=== PATIENT | female | born 1965 | race Caucasian/White ===

== ENCOUNTER → 2016-08-24 | Outpatient (CLI) | payer BC ==
--- NOTE | 2016-08-27 07:06 | MM ---
Reason for exam: screening (asymptomatic). Last mammogram was performed 1 year and 1 month ago. History: Family history of breast cancer in mother at age 50, breast cancer in maternal aunt at age 60, and breast cancer in paternal aunt. Retro-pectoral implants in both breasts, 2014. Implant Removal of both breasts, 2007. Retro-pectoral saline implants in both breasts, December 2000. Retro-pectoral saline implants in both breasts, 2000. Took hormonal contraceptives for 7 years beginning at age 20. Physical Findings: A clinical breast exam by your physician is recommended on an annual basis and results should be correlated with mammographic findings. MG Screening Mammo Implant/CAD Bilateral CC, MLO, and ID view(s) were taken. Prior study comparison: July 26, 2015, bilateral MG screening mammo implant/CAD. March 05, 2014, bilateral MG diagnostic mammo w CAD GILES. The breast tissue is extremely dense which could obscure a lesion on mammography. Bilateral implants intact. No significant changes when compared with prior studies. ASSESSMENT: Negative, BI-RAD 1 RECOMMENDATION: Follow-up diagnostic mammogram of both breasts in 1 year.
== END | disposition home or self-care (01) ==
LOC: RADMAMWWP 07:02
PROVIDERS: ATTEND Obstetrics & Gynecology
DX: Z12.31 Encounter for screening mammogram for malignant neoplasm of breast (principal); Z80.3 Family history of malignant neoplasm of breast; Z98.82 Breast implant status

== ENCOUNTER → 2017-05-21 | Outpatient (CLI) | payer BC ==
--- NOTE | 2017-05-21 16:32 | CT ---
EXAMINATION TYPE: CT angio chest DATE OF EXAM: 05/21/2017 4:12 PM COMPARISON: NONE HISTORY: Family history of heart disease and aortic aneurysm. No complaints at time of scan CT DLP: 297.3 mGycm Automated exposure control for dose reduction was used. CONTRAST: CTA scan of the thorax is performed without and with IV Contrast, patient injected with 100 mL of Omn ipaque 350, pulmonary embolism protocol. . FINDINGS: LUNGS: Pleural-based nodules are seen involving the upper lobes measuring less than 3 mm. No pneumoth orax. No consolidation. No focal pneumonia. 3 mm subpleural nodule left lower lobe. MEDIASTINUM: There is satisfactory enhancement of the pulmonary artery and its branches, there is no CT evidence for pulmonary embolism. There are no greater than 1 cm hilar or mediastinal lymph nodes. No pericardial effusion is seen. Aorta appears to be of normal course and caliber with no evidence of aneurysmal dilation. Aortic root measures 2.6 cm. Descending aorta measures 2.7 cm. Aortic arch m easures maximal dimension of 2.4 cm. Descending aorta measures a maximal dimension of 2.2 cm. OTHER: Mild adrenal gland thickening noted bilaterally. Bilateral breast prostheses are noted. IMPRESSION: 1. No evidence of aortic aneurysm. No acute process. 2. There are multiple subpleural nodules the largest within the left lower lobe measuring 3 mm. Short -term follow-up CT of the chest could be obtained on a 6-12 month basis to confirm stability.
== END | disposition home or self-care (01) ==
LOC: RADCTMAIN 15:38
PROVIDERS: ATTEND Family Medicine
DX: I25.9 Chronic ischemic heart disease, unspecified (principal); Z82.49 Family history of ischemic heart disease and other diseases of the circulatory system; R91.8 Other nonspecific abnormal finding of lung field
CPT/HCPCS: 71275; Q9967

== ENCOUNTER → 2017-09-20 | Outpatient (CLI) | payer BC ==
--- NOTE | 2017-09-20 09:23 | MM ---
Reason for exam: clinical finding. Last mammogram was performed 1 year and 1 month ago. History: Family history of breast cancer in mother at age 50, breast cancer in maternal aunt at age 60, and breast cancer in paternal aunt. Retro-pectoral implants in both breasts, 2014. Implant Removal of both breasts, 2007. Retro-pectoral saline implants in both breasts, December 2000. Retro-pectoral saline implants in both breasts, 2000. Took hormonal contraceptives for 7 years beginning at age 20. Physical Findings: Nurse Summary: 0.25cm nodule in the right breast at 10 o'clock (nurse dw). MG Diag Mamm Implants GILES w CAD Bilateral CC, MLO, and ID view(s) were taken. Prior study comparison: August 24, 2016, bilateral MG screening mammo implant/CAD. July 26, 2015, bilateral MG screening mammo implant/CAD. March 05, 2014, bilateral MG diagnostic mammo w CAD GILES. April 17, 2013, bilateral digital screening mammo w/CAD. The breast tissue is heterogeneously dense. This may lower the sensitivity of mammography. Bilateral retropectoral saline implants. Palpable marker on the right breast. Nodular asymmetry lateral right breast on the CC view appears to have been present in 2013. These results were verbally communicated with the patient and result sheet given to the patient on 09/20/17. ASSESSMENT: Incomplete: need additional imaging evaluation, BI-RAD 0 RECOMMENDATION: Ultrasound of the right breast.
--- NOTE | 2017-09-20 10:00 | USB ---
Reason for exam: follow-up at short interval from prior study. History: Family history of breast cancer in mother at age 50, breast cancer in maternal aunt at age 60, and breast cancer in paternal aunt. Retro-pectoral implants in both breasts, 2014. Implant Removal of both breasts, 2007. Retro-pectoral saline implants in both breasts, December 2000. Retro-pectoral saline implants in both breasts, 2000. Took hormonal contraceptives for 7 years beginning at age 20. US Breast RT Right breast ultrasound includes all four quadrants, the retroareolar region and axilla. Finding demonstrates a 0.5 x 0.3 x 0.4cm oval, cystic lesion at 10 o'clock BB with minimal internal debris, a 0.4 x 0.2 x 0.2cm oval lesion too small to characterize at 11 o'clock unchanged, benign, now smaller versus 7 x 4 x 5mm previously and a 0.3 x 0.2 x 0.5cm oval lesion too small to characterize at 11 o'clock versus 4 x 2 x 5mm previously, benign. These results were verbally communicated with the patient and result sheet given to the patient on 09/20/17. ASSESSMENT: Benign, BI-RAD 2 RECOMMENDATION: Routine screening mammogram of both breasts in 1 year. Manage on a clinical basis with regard to palpable 10 o'clock right breast cyst and breast pain.
== END | disposition home or self-care (01) ==
LOC: RADMAMWWP 07:30
PROVIDERS: ATTEND Surgery
DX: N63.11 Unspecified lump in the right breast, upper outer quadrant (principal); N64.4 Mastodynia; R92.8 Other abnormal and inconclusive findings on diagnostic imaging of breast
CPT/HCPCS: 77066

== ENCOUNTER → 2017-09-24 | Outpatient (CLI) | payer BC ==
--- NOTE | 2017-09-24 16:19 | BMR ---
EXAMINATION TYPE: MR breast BILAT wo/w con DATE OF EXAM: 09/24/2017 COMPARISON: Exams dating back to 04/17/2013 HISTORY: Abnormal mammo / Breast pain TECHNIQUE: A series of fat and water weighted images in the long and short axis views of both breasts are obtained in conjunction with dynamic contrast MRI with subtraction technique. The patient was i njected with 5 mL intravenous Gadavist gadolinium contrast. Three-dimensional and additional postpr ocessing imaging is created on independent workstation and reviewed during official interpretation of this study. FINDINGS: There is mild symmetric background parenchymal enhancement in breasts are composed of heter ogenous fibroglandular tissue. Bilateral retropectoral saline implants are intact without evidence of intracapsular or extracapsular rupture. The right breast 0.5 cm cystic mass at the 10 o'clock position as well as the 0.4 centimeter oval mas s at 11 o'clock seen on the prior right breast ultrasound dated 09/20/2017 are not clearly delineated on MR although the mass at 11:00 with smaller than on the previous exam and should be considered rogelio gn. 5 mm mass at the 11:00 position is seen and is T2 hyperintense without enhancement representing a simple cyst. No suspicious mass or nonmass enhancement are seen within either breast. No internal ma mmary, axillary, or intramammary adenopathy is seen bilaterally. IMPRESSION: BI-RADS 2-Benign findings. No MR evidence of malignancy. Annual screening mammography is recommended.
== END | disposition home or self-care (01) ==
LOC: RADMRIMAIN 06:09
PROVIDERS: ATTEND Surgery
DX: N64.4 Mastodynia (principal); N63.0 Unspecified lump in unspecified breast; R92.8 Other abnormal and inconclusive findings on diagnostic imaging of breast; Z98.82 Breast implant status
CPT/HCPCS: 77059; 0159T; A9581

== ENCOUNTER → 2018-08-12 | Outpatient (CLI) | payer BC ==
--- NOTE | 2018-08-12 09:35 | CT ---
EXAMINATION TYPE: CT chest wo con DATE OF EXAM: 08/12/2018 COMPARISON: 05/21/2017 HISTORY: follow up known lung nodule. CT DLP: 99.2 mGycm, Automated exposure control for dose reduction was used. CONTRAST: Performed injected with 0 mL of Isovue 300. TECHNIQUE: Axial images were obtained at 5 mm thick sections. Reconstructed images are reviewed on [employer] computer in the coronal plane. FINDINGS: Portion of the thyroid visualized is normal. There is a 0.3 cm bilateral lung base. Series 4 image 51. Couple of additional punctate subpleural. N o enlarged. No enlarged mediastinal or hilar adenopathy is evident. The ascending aorta diameter at the level o f the main pulmonary artery is 3.1 cm. The main pulmonary artery diameter at the bifurcation is 2.[address] sections are obtained through the upper abdomen. Abdomen is essentially unremarkable. Bilateral breast prostheses are evident. IMPRESSIONS: 1. Stable subpleural nodules largest lower lobe measures 0.3 cm. These should be confirmed as stable over the course of 2 years. Follow-up exam in 6-12 months is recommended.
== END | disposition home or self-care (01) ==
LOC: RADCTMAIN 06:57
PROVIDERS: ATTEND Family Medicine
DX: R91.8 Other nonspecific abnormal finding of lung field (principal)
CPT/HCPCS: 71250

== ENCOUNTER → 2018-11-11 | Outpatient (CLI) | payer BC ==
--- NOTE | 2018-11-11 09:54 | CT ---
EXAMINATION TYPE: CT abdomen pelvis wo con DATE OF EXAM: 11/11/2018 COMPARISON: None HISTORY: Right flank pain CT DLP: 468 mGycm Examination of the solid and hollow viscera is limited given the lack of contrast. FINDINGS: LUNG BASES: No evidence for nodule. No evidence for infiltrate. LIVER/GB: The gallbladder is unremarkable. No space-occupying hepatic lesion. PANCREAS: No pancreatic mass identified. No inflammatory process seen. SPLEEN: No evidence for splenomegaly. No intrasplenic lesions seen. ADRENALS: No adrenal nodules identified. No evidence for thickening. KIDNEYS: No evidence for renal mass. No nephrolithiasis. No hydronephrosis. BOWEL: Appendix has a normal appearance. No evidence of bowel obstruction. No inflammatory process. M ild fecal stasis noted. Lymph nodes: No evidence for adenopathy greater than 1 cm. Abdominal aorta: Atheromatous changes seen. No evidence for aneurysm. Genital organs: No significant abnormality. Other: No significant abnormality. IMPRESSION: Mild fecal stasis. Otherwise unremarkable study.
== END ==
LOC: RADCTMAIN 08:20
PROVIDERS: ATTEND Physical Medicine & Rehabilitation
DX: R19.5 Other fecal abnormalities (principal)
CPT/HCPCS: 74176

== ENCOUNTER → 2018-11-21 | Outpatient (CLI) | payer BC ==
--- NOTE | 2018-11-21 15:56 | MR ---
EXAMINATION TYPE: MR lumbar spine wo con DATE OF EXAM: 11/21/2018 COMPARISON: 11/11/2017 CT abdomen and pelvis HISTORY: Low back pain / Abdominal pain TECHNIQUE: Multiplanar, multisequence images of the lumbar spine were acquired. FINDINGS: Multilevel disc desiccation is seen of the lumbar spine. Conus medullaris is unremarkable i n signal and morphology terminating at L2. Vertebral body heights and alignment of the lumbar spine a re maintained. L1-L2: Normal disc appearance without desiccation. No herniation, protrusion or disc bulging. No ca nal stenosis is present. Foramina are patent bilaterally. L2-L3: Slight disc desiccation and a broad-based disc bulge are seen without spinal canal stenosis no r neural foraminal narrowing. L3-L4: Broad-based disc bulge, ligamentum flavum buckling and facet arthropathy are seen however ther e is no significant neural foraminal narrowing. No spinal canal stenosis. L4-L5: Very minimal bilateral neural foraminal narrowing is seen as a result of a broad-based disc bu lge and facet arthropathy. No spinal canal stenosis. L5-S1: Left paracentral disc herniation is seen with slight mass effect upon the forming left S1 nerv e root. Neural foramen appear patent. No spinal canal stenosis by measurement criteria. Incidentally noted left sacral Tarlov/neurogenic cyst on the sagittal image only. IMPRESSION: 1. 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 2. Mild multilevel degenerative disc disease of the lumbar spine with only very minimal bilateral danielle ral foraminal narrowing at L4-L5.
== END ==
LOC: RADMRIMAIN 06:11
PROVIDERS: ATTEND Physical Medicine & Rehabilitation
DX: M48.061 Spinal stenosis, lumbar region without neurogenic claudication (principal); M51.27 Other intervertebral disc displacement, lumbosacral region; M51.36 Other intervertebral disc degeneration, lumbar region
CPT/HCPCS: 72148

== ENCOUNTER → 2019-07-30 | Outpatient (CLI) | payer BC ==
--- NOTE | 2019-07-31 10:41 | MM ---
Reason for exam: screening (asymptomatic). Last mammogram was performed 1 year and 10 months ago. History: Family history of breast cancer in mother at age 50, breast cancer in maternal aunt at age 60, and breast cancer in paternal aunt. Retro-pectoral implants in both breasts, 2014. Implant Removal of both breasts, 2007. Retro-pectoral saline implants in both breasts, December 2000. Retro-pectoral saline implants in both breasts, 2000. Took hormonal contraceptives for 7 years beginning at age 20. Physical Findings: A clinical breast exam by your physician is recommended on an annual basis and results should be correlated with mammographic findings. MG Screening Mammo Implant/CAD Bilateral CC, MLO, and ID view(s) were taken. Prior study comparison: September 20, 2017, bilateral MG diag mamm implants GILES w CAD. August 24, 2016, bilateral MG screening mammo implant/CAD. July 26, 2015, bilateral MG screening mammo implant/CAD. The breast tissue is heterogeneously dense. This may lower the sensitivity of mammography. Bilateral retropectoral silicone implants. Stable lateral asymmetric density left CC view. No significant changes when compared with prior studies. ASSESSMENT: Negative, BI-RAD 1 RECOMMENDATION: Routine screening mammogram of both breasts in 1 year. Patient should continue monthly self breast exams. A negative report should not preclude additional follow up of suspicious palpable abnormalities.
== END | disposition home or self-care (01) ==
LOC: RADMAMWWP 07:03
PROVIDERS: ATTEND Obstetrics & Gynecology
DX: Z12.31 Encounter for screening mammogram for malignant neoplasm of breast (principal); Z80.3 Family history of malignant neoplasm of breast; Z98.82 Breast implant status
CPT/HCPCS: 77067

== ENCOUNTER → 2020-06-16 | Outpatient (CLI) | payer BC ==
--- NOTE | 2020-06-16 13:35 | US ---
EXAMINATION TYPE: US pelvis complete transvag DATE OF EXAM: 06/16/2020 COMPARISON: CT 11/11/2018, US 04/17/2013 CLINICAL HISTORY: R10.31 Right lower quadrant pain. TECHNIQUE: . Transabdominal sonographic images of the pelvis were acquired. Transvaginal sonographi c images were medically necessary to better assess the following anatomy: Uterus and endometrium Date of LMP: 06/05/2020 EXAM MEASUREMENTS: Uterus: 93 x 4.6 x 4.7 cm Endometrial Stripe: 0.9 cm Right Ovary: 3.0 x 2.1 x 2.4 cm Left Ovary: 2.3 x 2.2 x 1.4 cm 1. Uterus: Anteverted Heterogeneous myometrium. tiny amount of fluid visualized within the cervix 2. Endometrium: Two cystic areas visualized. It is difficult to differentiate if these areas are wit hin the endometrium or directly adjacent to the endometrium in the myometrium. The largest cystic are a measures 0.6 cm 3. Right Ovary: Cyst visualized measuring 2.0 x 1.3 x 1.5 cm 4. Left Ovary: wnl 5. Bilateral Adnexa: wnl 6. Posterior cul-de-sac: wnl IMPRESSION: Right ovarian cyst. Indeterminate cystic areas is seen at the level of the fundal aspect of the endometrium or myometrium, possible myometrial cysts, consider adenomyosis
== END | disposition home or self-care (01) ==
LOC: RADUSWWP 12:15
PROVIDERS: ATTEND Family Medicine
DX: N83.201 Unspecified ovarian cyst, right side (principal)
CPT/HCPCS: 76830; 76856

== ENCOUNTER → 2021-10-02 | Outpatient (CLI) | payer BC ==
--- NOTE | 2021-10-03 11:21 | MM ---
Reason for exam: screening (asymptomatic). Last mammogram was performed 2 years and 2 months ago. History: Family history of breast cancer in mother at age 50, breast cancer in maternal aunt at age 60, and breast cancer in paternal aunt. Retro-pectoral silicone gel implants in both breasts, 2014. Implant Removal of both breasts, 2007. Retro-pectoral saline implants in both breasts, December 2000. Retro-pectoral saline implants in both breasts, 2000. Took hormonal contraceptives for 7 years beginning at age 20. Physical Findings: A clinical breast exam by your physician is recommended on an annual basis and results should be correlated with mammographic findings. MG Screening Mammo Implant/CAD Bilateral CC and MLO view(s) were taken. Prior study comparison: July 30, 2019, bilateral MG screening mammo implant/CAD. September 20, 2017, bilateral MG diag mamm implants GILES w CAD. The breast tissue is extremely dense which could obscure a lesion on mammography. Finding: There is a 5 mm circumscribed round mass located 5 cm from the nipple in the upper quadrant, middle position of the right breast and a 7 mm oval density in the left breast middle posterior depth. New finding since July 30, 2019 and September 20, 2017. ASSESSMENT: Incomplete: need additional imaging evaluation, BI-RAD 0 RECOMMENDATION: Special view mammogram and ultrasound of both breasts. [facility] will attempt to contact patient to return for supplemental views and ultrasound.
== END | disposition home or self-care (01) ==
LOC: RADMAMWWP 13:29
PROVIDERS: ATTEND Obstetrics & Gynecology
DX: Z12.31 Encounter for screening mammogram for malignant neoplasm of breast (principal); Z80.3 Family history of malignant neoplasm of breast
CPT/HCPCS: 77067

== ENCOUNTER → 2021-10-05 | Outpatient (CLI) | payer BC ==
--- NOTE | 2021-10-05 12:10 | MM ---
Reason for exam: additional evaluation requested from abnormal screening. Last mammogram was performed less than 1 month ago. History: Family history of breast cancer in mother at age 50, breast cancer in maternal aunt at age 60, and breast cancer in paternal aunt. Retro-pectoral silicone gel implants in both breasts, 2014. Implant Removal of both breasts, 2007. Retro-pectoral saline implants in both breasts, December 2000. Retro-pectoral saline implants in both breasts, 2000. Took hormonal contraceptives for 7 years beginning at age 20. Physical Findings: A clinical breast exam by your physician is recommended on an annual basis and results should be correlated with mammographic findings. MG 3D Work Up W/Cad W/Imp GILES Bilateral CC and MLO view(s) were taken. Prior study comparison: October 02, 2021, bilateral MG screening mammo implant/CAD. July 30, 2019, bilateral MG screening mammo implant/CAD. The breast tissue is extremely dense which could obscure a lesion on mammography. Focal asymmetry with nodularity persisting. These results were verbally communicated with the patient and result sheet given to the patient on 10/05/21. ASSESSMENT: Incomplete: need additional imaging evaluation, BI-RAD 0 RECOMMENDATION: Ultrasound of both breasts.
--- NOTE | 2021-10-05 12:13 | USB ---
Reason for exam: additional evaluation requested from abnormal screening. History: Family history of breast cancer in mother at age 50, breast cancer in maternal aunt at age 60, and breast cancer in paternal aunt. Retro-pectoral silicone gel implants in both breasts, 2014. Implant Removal of both breasts, 2007. Retro-pectoral saline implants in both breasts, December 2000. Retro-pectoral saline implants in both breasts, 2000. Took hormonal contraceptives for 7 years beginning at age 20. US Breast Workup Limited GILES Technologist: Jackie Clifton Right limited breast ultrasound including focal area of concern, retroareolar and axilla demonstrates a 0.5 x 0.5 x 0.4cm cystic lesion at 10 o'clock. Left limited breast ultrasound including focal area of concern, retroareolar and axilla demonstrates a 0.5 x 0.5 x 0.2cm cystic lesion at the axilla. These results were verbally communicated with the patient and result sheet given to the patient on 10/05/21. ASSESSMENT: Probably benign, BI-RAD 3 RECOMMENDATION: Follow-up diagnostic mammogram and ultrasound of both breasts in 6 months.
== END | disposition home or self-care (01) ==
LOC: RADMAMWWP 08:09
PROVIDERS: ATTEND Obstetrics & Gynecology
DX: R92.8 Other abnormal and inconclusive findings on diagnostic imaging of breast (principal); Z80.3 Family history of malignant neoplasm of breast; Z98.82 Breast implant status
CPT/HCPCS: 77062; 77066

== ENCOUNTER → 2021-10-10 | Outpatient (CLI) | payer BC ==
--- NOTE | 2021-10-10 17:10 | US ---
EXAMINATION TYPE: US transvaginal DATE OF EXAM: 10/10/2021 COMPARISON: 06/16/2020 CLINICAL HISTORY: 55-year-old female R10.2 pelvic pain, N83.209, N39.9 Abnormal uterine bleeding. Irr egular periods, right pelvic pain, 1, para 1 TECHNIQUE: Transvaginal exam only per ordering physician Date of LMP: 09/16/2021 FINDINGS: EXAM MEASUREMENTS: Uterus: 8.1 x 3.9 x 4.5 cm Endometrial Stripe: 0.5 cm Right Ovary: 2.4 x 1.4 x 1.8 cm Left Ovary: 2.1 x 1.2 x 1.3 cm 1. Uterus: anteverted, myometrium is mildly heterogeneous within scattered echogenic areas 2. Endometrium: appears wnl 3. Right Ovary: There is a 1.2 cm dominant follicle or functional cyst. 4. Left Ovary: wnl 5. Bilateral Adnexa: wnl 6. Posterior cul-de-sac: small amount of free fluid IMPRESSION: 1. Endometrial stripe measures 5 mm thick. The myometrium is heterogeneous with some scattered echoge og areas. Findings may represent adenomyosis. If further imaging evaluation is desired, a female pel mat MRI can be performed to further assess the junctional zone. 2. A 1.2 cm dominant follicle or functional cyst of the right ovary. 3. Mild cul-de-sac free fluid likely physiologic.
== END | disposition home or self-care (01) ==
LOC: RADUSWWP 14:13
PROVIDERS: ATTEND Obstetrics & Gynecology
DX: N83.01 Follicular cyst of right ovary (principal); R93.89 Abnormal findings on diagnostic imaging of other specified body structures
CPT/HCPCS: 76830

== ENCOUNTER → 2022-04-05 | Outpatient (CLI) | payer BC ==
--- NOTE | 2022-04-05 09:52 | MM ---
Reason for Exam: Follow-up at short interval from prior study. Last screening mammogram was performed 6 month(s) ago. Patient History: Menarche at age 14. First Full-Term at age 29. Patient has history of breast feeding. Hormonal Contraceptives for 7 years from age 20 until age 28. 2007, Bilateral Implant Removal. 12/2000, Bilateral Implants. 2000, Bilateral Implants. 2014, Bilateral Implants. Paternal aunt had breast cancer, age 60. Maternal aunt had breast cancer, age 60. Mother had breast cancer, age 50. Last menstrual period: 03/29/2022 Risk Values: Stephani 5 year model risk: 2.2%. NCI Lifetime model risk: 15.8%. Prior Study Comparison: 12/28/1992 Screening Mammogram, Unknown. 08/24/2016 Bilateral Screening Mammogram, [facility]. 09/20/2017 Bilateral Diagnostic Mammogram, [facility]. 07/30/2019 Bilateral Screening Mammogram, [facility]. 10/02/2021 Bilateral Screening Mammogram, [facility]. 10/05/2021 Bilateral Diagnostic Mammogram, [facility]. Tissue Density: The breast tissue is extremely dense which could obscure a lesion on mammography. Findings: Analyzed By CAD. Bilateral subpectoral implants redemonstrated. Stable oval circumscribed mass in the middle depth inner aspect left breast from most recent mammogram. No suspicious group of microcalcifications in either breast. Overall Assessment: Incomplete: need additional imaging evaluation, BI-RAD 0 Management: Diagnostic Breast Ultrasound of the left breast. Targeted ultrasound left breast. Results were given to the patient verbally at the time of exam. Electronically signed and approved by: Bulmaro Perez M.D.
--- NOTE | 2022-04-05 10:41 | USB ---
Patient History: Menarche at age 14. First Full-Term at age 29. Patient has history of breast feeding. Hormonal Contraceptives for 7 years from age 20 until age 28. 2007, Bilateral Implant Removal. 12/2000, Bilateral Implants. 2000, Bilateral Implants. 2014, Bilateral Implants. Paternal aunt had breast cancer, age 60. Maternal aunt had breast cancer, age 60. Mother had breast cancer, age 50. Risk Values: Stephani 5 year model risk: 2.2%. NCI Lifetime model risk: 15.8%. Prior Study Comparison: 07/30/2019 Bilateral Screening Mammogram, [facility]. 10/02/2021 Bilateral Screening Mammogram, [facility]. 10/05/2021 Bilateral Diagnostic Mammogram, [facility]. Findings: The upper outer quadrant of the right breast, the upper inner quadrant of the left breast, the axilla of both breasts and the retroareolar of both breasts were scanned. Scanning right breast redemonstrates 5 x 4 x 5 mm oval anechoic lesion 9:00 position 7 cm distance from nipple felt to correspond to prior 10:00 lesion consistent with benign thin-walled cyst. No significant interval change. There is oval 4 x 4 by 6 mm circumscribed anechoic lesion 9:00 position 3 cm distance from nipple felt to reflect benign thin-walled cyst corresponding to new mammogram lesion of concern. Subcentimeter lesion in the left axilla prior study not clearly seen on current study. Overall Assessment: Benign, BI-RAD 2 Management: Screening Mammogram of both breasts in 1 year. Return to routine follow-up. Patient told the findings and recommendation at time of dictation. Electronically signed and approved by: Bulmaro Perez M.D.
== END | disposition home or self-care (01) ==
LOC: RADMAMWWP 08:59
PROVIDERS: ATTEND Obstetrics & Gynecology
DX: R92.8 Other abnormal and inconclusive findings on diagnostic imaging of breast (principal); Z80.3 Family history of malignant neoplasm of breast
CPT/HCPCS: 77062; 77066

== ENCOUNTER → 2023-10-28 | Outpatient (CLI) | payer BC ==
--- NOTE | 2023-10-28 23:25 | US ---
EXAMINATION TYPE: US thyroid st tissue head/neck DATE OF EXAM: 10/28/2023 COMPARISON: NONE CLINICAL INDICATION: Female, 57 years old with history of E04.2 MULTINODULAR GOITER; Pt states known nodules bilaterally from scan at outside facility/ no prior here GLAND SIZE: Right Lobe: 5.4 x 1.7 x 1.7 cm Overall Parenchyma: homogeneous Left Lobe: 5.2 x 1.4 x 1.5 cm Overall Parenchyma: heterogeneous Isthmus Thickness: 0.3 cm NODULES RIGHT: # of nodules measured on right: 1 1. 1.5 X 0.8 x 1.2 cm, upper, solid, isoechoic nodule, which is wider than tall, with ill-defined m argins, without echogenic foci. The TR 3 Prior size:No prior LEFT: # of nodules measured on left: 1 1. 0.5 X 0.4 x 0.4 cm, upper, solid, hypoechoic nodule, which is wider than tall, with smooth amanda ns, without echogenic foci. Prior size: No prior ISTHMUS: # of nodules measured in the isthmus: 0 Bilateral neck scanned, no evidence of lymphadenopathy. Single nodule right lobe, left lobe has a cou ple of sub-centimeter nodules upper pole, largest measured. IMPRESSION: Mildly suspicious nodule right lobe thyroid. Follow-up exam in one year is recommended 2017 ACR TI-RADS LEVEL: TR-RADS 3 - Mildly Suspicious: Follow if > 1.5 cm, FNA if > 2.5 cm *Highest TI-RADS level nodule reported
== END | disposition home or self-care (01) ==
LOC: RADUSWWP 14:57
PROVIDERS: ATTEND Otolaryngology
DX: E04.2 Nontoxic multinodular goiter (principal)
CPT/HCPCS: 76536

== ENCOUNTER → 2023-11-20 | Outpatient (CLI) | payer BC ==
[2023-11-20 09:06] VITALS: BP 144/82; PULSE 66; RESP 16; TEMP 98.2
--- NOTE | 2023-11-20 09:37 | P.HPOB ---
History of Present Illness H&P Date: 11/20/23 Chief Complaint: The patient is here for her routine gynecologic exam and ma mmogram. This is a 57-year-old G1, P1 with an LMP of 10/20/2023. Patient is here to establish with this office. is status postmastectomy. It has been about 1 year since her last pelvic exam. Her menstrual periods were regular up until about April 2023. She has had menstrual period since in April and July 2023 as well as October 2023. She had mild hot flashes last fall but t hese seem to have improved. She is otherwise without gynecologic complaints. Review of Systems The patient's weight has been stable over the last year. She denies respira tory, cardiac, or G.I. problems. Past Medical History Past Medical History: No Reported History Additional Past Medical History / Comment(s): Environmental allergies. Osteopenia. 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 History of Any Multi-Drug Resistant Organisms: None Reported Past Surgical History: Tonsillectomy Additional Past Surgical History / Comment(s): BREAST IMPLANTS 2015. Laparoscopy. Colonoscopy 2019(next after 5yr). Past Anesthesia/Blood Transfusion Reactions: No Reported Reaction Past Psychological History: No Psychological Hx Reported Smoking Status: Never smoker Past Alcohol Use History: Occasional (2 drinks per month.) Past Drug Use History: None Reported Additional History: She has been since 1992. She works for [employer] doing [employer]. - Past Family History Mother Family Medical History: Cancer, Hypertension Additional Family Medical History / Comment(s): Osteoporosis, peripheral artery disease, and breast cancer. . Father Family Medical History: Cancer, COPD, Hypertension Additional Family Medical History / Comment(s): Colon cancer and lung cancer. . Paternal grandmother had ovarian cancer. Medications and Allergies Home Medications Medication Instructions Recorded Confirmed Type No Known Home Medications 11/20/23 11/20/23 History Allergies Allergy/AdvReac Type Severity Reaction Status Date / Time Sulfa (Sulfonamide Allergy Rash/Hives Unverified 11/20/23 08:34 Antibiotics) Exam Vital Signs Temp Pulse Resp BP Pulse Ox 11/20/23 08:35 98.2 F 66 16 144/82 100 Intake and Output 11/19/23 11/20/23 11/20/23 22:59 06:59 14:59 Other: Weight 52.617 kg Height 5 feet 5 inches, weight 116 pounds, BMI 19.3. This is a well-developed well-nourished thin white female who is alert and orie nted times 3 in no acute distress. HEENT: Within normal limits. NECK: Supple without mass or thyromegaly. CHEST AND LUNGS: Clear to auscultation. HEART: Regular rate and rhythm. BREASTS: Are without mass or discharge. There are bilateral breast implants. AXILLARY EXAM: Negative for adenopathy. BACK: Negative for CVA tenderness. ABDOMEN: Soft, nontender, without palpable masses. PELVIC EXAM: Normal external genitalia. Cervix and vagina appear normal. There is no unusual discharge. There is no evidence of prolapse. The uterus is midposition, nongravid size and nontender. There are no palpable adnexal masses or tenderness. RECTAL EXAM: Rectovaginal exam is negative for mass or tenderness and is negative for occult blood. EXTREMITIES: Nontender. IMPRESSION: 1. 57-year-old perimenopausal female whose is status post vasectomy, with normal gynecologic exam 2. Recent oligomenorrhea and mild vasomotor symptoms consistent with the perimenopause. 3. History of osteopenia. 4. Elevated blood pressure. PLAN: 1. Pap smear cotest was performed. 2. Self breast awareness was discussed with the patient. We have also discussed symptoms associated with inflammatory breast cancer. 3. Screening mammogram will be done today. 4. Osteoporosis prevention was discussed. I have stressed the importance of adequate calcium, vitamin D and regular exercise. Recommended amounts of calc ium and vitamin D were also discussed. We will plan on doing a bone density test when she becomes menopausal. 5. We have discussed her elevated blood pressure. I have recommended that she check her own blood pressure on a regular basis since she does have a way to check her own blood pressure at home. She will follow-up with her PCP for blood pressure elevations. 6. She is scheduled for a colonoscopy later this week. 7. She was advised to return in one year for her annual well woman exam.
--- NOTE | 2023-11-21 19:11 | MM ---
Reason for Exam: Screening (asymptomatic). Last mammogram was performed 1 year(s) and 7 month(s) ago. Patient History: Menarche at age 14. First Full-Term at age 29. Patient has history of breast feeding. Hormonal Contraceptives for 7 years from age 20 until age 28. 2007, Bilateral Implant Removal. 12/2000, Bilateral Implants. 2014, Bilateral Implants. Paternal aunt had breast cancer, age 60. Maternal aunt had breast cancer, age 60. Mother had breast cancer, age 50. Last menstrual period: 10/20/2023 Risk Values: Stephani 5 year model risk: 2.3%. NCI Lifetime model risk: 15.5%. Prior Study Comparison: 10/02/2021 Bilateral Screening Mammogram, [facility]. 10/05/2021 Bilateral Diagnostic Mammogram, [facility]. 04/05/2022 Bilateral MG 3D diag mammo imp w/cad [facility], [facility]. Tissue Density: The breasts are heterogeneously dense, which may obscure small masses. Findings: Analyzed By CAD. Bilateral retropectoral silicone implants. There is no suspicious group of microcalcifications or new suspicious mass in either breast. Overall Assessment: Benign, BI-RAD 2 Management: Screening Mammogram of both breasts in 1 year. . Patient should continue monthly self-breast exams. A clinical breast exam by your physician is recommended on an annual basis. This exam should not preclude additional follow-up of suspicious palpable abnormalities. Note on Stephani scores and lifetime risk: 1. A Stephani score greater than 3% is considered moderate risk. If this is the case, consider specialist referral to assess eligibility for a risk reducing agent. 2. If overall lifetime risk for the development of breast cancer is 20% or higher, the patient may qualify for future screening with alternating mammogram and breast MRI. Electronically signed and approved by: Maria Luz Serrano M.D. Radiologist
== END ==
LOC: WWCWWP 08:27
PROVIDERS: ATTEND Obstetrics & Gynecology
DX: Z12.31 Encounter for screening mammogram for malignant neoplasm of breast (principal); I10 Essential (primary) hypertension; M85.80 Other specified disorders of bone density and structure, unspecified site; Z88.2 Allergy status to sulfonamides; Z78.0 Asymptomatic menopausal state
CPT/HCPCS: 77063; 77067

== ENCOUNTER 2023-11-22 11:14 | Day surgery (SDC) | payer BC ==
[2023-11-20 15:32] VITALS: BMI 19.1
[2023-11-22] MEDS: LIDOCAINE 1% (10MG/ML) FOR IV START INTRADERMA ONE (11:47)
[2023-11-22] MEDS: LACTATED RINGERS 1,000 ML IV SCH (11:47)
[2023-11-22 12:12] VITALS: TEMP 97.3
[2023-11-22] MEDS ORDERED: PROPOFOL 10 MG/ML 20 ML VIAL IV ONE (13:16)
--- NOTE | 2023-11-22 13:31 | P.PCN ---
Date of Procedure: 11/22/23 Procedure(s) Performed: BRIEF HISTORY: Patient is a 57-year-old pleasant white female scheduled for an elective colonoscopy as a part of screening for colon cancer and family history of colon cancer. Her father was diagnosed with colon cancer at age 80. PROCEDURE PERFORMED: Colonoscopy with snare polypectomy. PREOPERATIVE DIAGNOSIS: screening for colon cancer and family history of colon cancer IV sedation per Anesthesia. PROCEDURE: After informed consent was obtained, the patient, was brought into the endoscopy unit. IV sedation was administered by Anesthesia under continuous monitoring. Digital rectal examination was normal. Initially the Olympus CF-160 flexible video colonoscope was then inserted in the rectum, gradually advanced into the cecum without any difficulty. Careful examination was performed as the scope was gradually being withdrawn. Ileocecal valve and the appendiceal orifice were visualized and appeared normal. Prep was excellent. Mucosa of the cecum, ascending colon, transverse colon,been normal. In the descending colon there was a 5 limited sessile polyp that was removed by cold snare polypectomy. Rest of the descending colon, sigmoid colon, and rectum appeared normal. Retroflexion was performed in the rectum and no lesions were seen. The patient tolerated the procedure well. IMPRESSION: 6 mm descending colon polyp status post cold snare polypectomy Rest of the colon appeared normal RECOMMENDATIONS: Findings of this examination were discussed with the patient As well as a family. She was advised to follow with the biopsy results. Recommend repeat colonoscopy in 5 years because of the family history of colon cancer.
[2023-11-22 14:20] VITALS: BP 105/63; PULSE 71; RESP 18
== END 2023-11-22 14:04 | disposition home or self-care (01) ==
LOC: ORWHC2ENDO 11:14
PROVIDERS: ATTEND Internal Medicine Gastroenterology
DX: Z12.11 Encounter for screening for malignant neoplasm of colon (principal); D12.4 Benign neoplasm of descending colon; Z80.0 Family history of malignant neoplasm of digestive organs; Z88.2 Allergy status to sulfonamides; Z98.890 Other specified postprocedural states
CPT/HCPCS: 81025; 88305; 45385; J2704